=== PATIENT | male | born 1940 | race Caucasian/White ===

== ENCOUNTER 2021-12-18 15:06 | Emergency (ER) | payer MEDICARE ==
[~2021-12-18] VITALS: Ht 167.6 cm; Wt 68.5 kg
--- NOTE | 2021-12-18 15:15 | NUR ---
RICHARDSON FROM [facility] FOR ABNORMAL LABS AND POOR ORAL INTAKE X 1 WEEK. THE PATIENT IS ALERT AND ORIENTED X1. IN ROOM AIR, RESPIRATION REGULAR AND UNLABORED. THE PATIENT IS IN NO APPARENT DISTRESS. THE PATIENT IS ATTACHED TO THE MONITOR. WARM BLANKET PROVIDED FOR COMFORT. WILL CONTINUE TO MONITOR THE PATIENT.
[2021-12-18 15:55] LABS: BASOPHILS % (AUTO) 0.5 % (0.0-2.0); EOSINOPHILS % (AUTO) 0.9 % (0.0-6.0); HEMATOCRIT 34 % (39-51); HEMOGLOBIN 10.9 g/dL (13.5-17.5); LYMPHOCYTES # (AUTO) 0.7 K/uL (0.8-4.8); LYMPHOCYTES % (AUTO) 9.5 % (20.0-44.0); MEAN CORPUSCULAR HGB CONC 32 g/dl (31.0-36.0); MEAN CORPUSCULAR VOLUME 78 fL (80-96); MONOCYTES # (AUTO) 0.6 K/uL (0.1-1.30); MONOCYTES % (AUTO) 8.2 % (2.0-12.0); NEUTROPHILS # (AUTO) 5.9 K/uL (1.8-8.9); NEUTROPHILS % (AUTO) 80.9 % (43.0-81.0); PLATELET COUNT (AUTO) 440 K/uL (150-450); RED BLOOD CELL COUNT(AUTO) 4.28 MIL/uL (4.5-6.0); WHITE BLOOD COUNT (AUTO) 7.3 K/uL (4.3-11.0)
[2021-12-18 16:13] LABS: CALCIUM, SERUM 9.8 mg/dL (8.5-10.1); CARBON DIOXIDE 34 mmol/L (21-32); CHLORIDE 94 mmol/L (98-107); CREATININE 0.7 mg/dL (0.6-1.3); GLUCOSE 126 mg/dL (74-106); POTASSIUM 3.5 mmol/L (3.5-5.1); SODIUM SERUM 134 mmol/L (136-145); UREA NITROGEN, BLOOD 21 mg/dL (7-18)
[2021-12-18 16:18] LABS: ALANINE AMINOTRANSFERASE 14 U/L (12-78); ALBUMIN 2.2 g/dL (3.4-5.0); ALKALINE PHOSPHATASE 114 U/L (46-116); ASPARTATE AMINOTRANSFERASE 21 U/L (15-37); BILIRUBIN,DIRECT 0.2 mg/dL (0.0-0.2); BILIRUBIN,TOTAL 0.4 mg/dL (0.2-1.0); TOTAL PROTEIN, SERUM 7.6 g/dL (6.4-8.2)
[2021-12-18] MEDS ORDERED: IV NS 0.9% 1,000 ML BAG IV ONE (17:00)
--- NOTE | 2021-12-18 17:17 | NUR ---
COVID ANTIGEM AND COVID PCR SWABS DONE AND SENT TO THE LAB.
--- NOTE | 2021-12-18 17:18 | NUR ---
URINE COLLECTED AND SENT TO THE LAB
[2021-12-18 18:02] LABS: BILIRUBIN,URINE NEGATIVE (NEGATIVE); COLOR,URINE YELLOW (YELLOW); LEUKOCYTE ESTERASE ,URINE NEGATIVE (NEGATIVE); NITRITE, URINE NEGATIVE (NEGATIVE); PROTEIN,URINE NEGATIVE (NEGATIVE); UGLUCOSE NEGATIVE (NEGATIVE)
--- NOTE | 2021-12-18 19:25 | NUR ---
[facility] CALLED FOR TRANSPORT ETA 15 MINS PER IVETT.
--- NOTE | 2021-12-18 20:00 | NUR ---
REPORT GIVEN TO NURSE ASH FROM [facility]
--- NOTE | 2021-12-18 20:02 | NUR ---
REPORT GIVEN TO AMBULANCE STAFF
--- NOTE | 2021-12-18 20:13 | NUR ---
IV removed. Catheter intact and site benign. Pressure and 4x4 applied to site. No bleeding noted.Patient discharged in stable condition. Written and verbal after care instructions given.
[2021-12-18 20:28] VITALS: BP 121/77
== END 2021-12-18 20:28 ==
LOC: ER 15:11
DX: R53.1 Weakness (principal); G20 Parkinson's disease; F02.80 Dementia in other diseases classified elsewhere, unspecified severity, without behavioral disturbance, psychotic disturbance, mood disturbance, and anxiety; I25.10 Atherosclerotic heart disease of native coronary artery without angina pectoris; E78.5 Hyperlipidemia, unspecified; E11.9 Type 2 diabetes mellitus without complications; R13.12 Dysphagia, oropharyngeal phase; I10 Essential (primary) hypertension; Z20.822 Contact with and (suspected) exposure to COVID-19; R94.31 Abnormal electrocardiogram [ECG] [EKG]; R29.6 Repeated falls; Z87.440 Personal history of urinary (tract) infections
CPT/HCPCS: 99285; 96360; 70450; 71045; 87426; 93005; 84145; 85025; 80048; 87077; 87040 ×2; 87086; 83605; 80076; 87186; 81003; 36415; 84484; 85730; J7030; C9803; U0003

== ENCOUNTER 2022-01-13 20:46 | Inpatient (IN) | payer MEDICARE, OTHER ==
[~2022-01-13] VITALS: Ht 177.8 cm; Wt 69.4 kg
--- NOTE | 2022-01-13 20:50 | NUR ---
AVERA 40 FROM SNF FOR SOB AND FEVER. PLACED ON BED, RESPONDING TO PAINFUL STIMULI, TACHYPNEIC RR- 30 SATURATING AT 93% WITH NON REBREATHING MASK 15LIT O2. PINBALL MACHINE REPAIRER AT BED SIDE ATTACHED TO BI-PAP WITH SETTING IPAP-15, EPAP-5, RATE-14, O2-50% SATURATING AT 99%
[2022-01-13] MEDS ORDERED: IV LR 1000 ML 1,000 ML IV ONE ×2 (21:30→23:00)
[2022-01-13] MEDS ORDERED: PIPERACILLIN /TAZOBACTAM 3.375 G in IV D5W 50 ML IV ONE (21:30)
--- NOTE | 2022-01-13 21:46 | NUR ---
RECTAL TEMP 104.0 DR. YONY PURI AWARE.
--- NOTE | 2022-01-13 21:46 | NUR ---
LFA #18G S/L BLOOD, COVID PCR, AND COVID ANTIGEN SWAB COLLECTED AND SENT TO LAB
--- NOTE | 2022-01-13 21:54 | NUR ---
RT NOTE PT CAME IN FROM SNF ON NON REBREATHER FOR LABORED BREATHING AND HYPOXIA. PLACED ON BIPAP ON SETTINGS OF ST 15/5 RR 14 100% PER MD ORDER. Addendum: 01/14/22 at 0145 by LESLEE BARKER RT Amended: Links added.
[2022-01-13] MEDS ORDERED: ACETAMINOPHEN 650 MG/SUPP.RECT RC ONE ×2 (22:00→22:06)
[2022-01-13] MEDS ORDERED: PIPERACILLIN /TAZOBACTAM 3.375 G VIAL IV ONE (22:07)
[2022-01-13 22:23] LABS: BASOPHILS # (AUTO) 0.1 K/uL (0.0-0.2); BASOPHILS % (AUTO) 0.8 % (0.0-2.0); HEMATOCRIT 34 % (39-51); HEMOGLOBIN 10.9 g/dL (13.5-17.5); LYMPHOCYTES # (AUTO) 0.5 K/uL (0.8-4.8); LYMPHOCYTES % (AUTO) 3.6 % (20.0-44.0); MEAN CORPUSCULAR HGB CONC 32 g/dl (31.0-36.0); MEAN CORPUSCULAR VOLUME 78 fL (80-96); MONOCYTES # (AUTO) 0.7 K/uL (0.1-1.30); MONOCYTES % (AUTO) 4.7 % (2.0-12.0); NEUTROPHILS # (AUTO) 13.3 K/uL (1.8-8.9); NEUTROPHILS % (AUTO) 90.9 % (43.0-81.0); PLATELET COUNT (AUTO) 564 K/uL (150-450); RED BLOOD CELL COUNT(AUTO) 4.38 MIL/uL (4.5-6.0); WHITE BLOOD COUNT (AUTO) 14.7 K/uL (4.3-11.0)
[2022-01-13 22:34] LABS: CALCIUM, SERUM 10.9 mg/dL (8.5-10.1); CARBON DIOXIDE 22 mmol/L (21-32); CHLORIDE 101 mmol/L (98-107); CREATININE 1.3 mg/dL (0.6-1.3); GLUCOSE 248 mg/dL (74-106); POTASSIUM 4.5 mmol/L (3.5-5.1); SODIUM SERUM 140 mmol/L (136-145); UREA NITROGEN, BLOOD 27 mg/dL (7-18)
[2022-01-13 22:40] LABS: ALANINE AMINOTRANSFERASE 54 U/L (12-78); ALKALINE PHOSPHATASE 164 U/L (46-116); ASPARTATE AMINOTRANSFERASE 67 U/L (15-37); BILIRUBIN,DIRECT 0.2 mg/dL (0.0-0.2); BILIRUBIN,TOTAL 0.6 mg/dL (0.2-1.0); TOTAL PROTEIN, SERUM 8.3 g/dL (6.4-8.2)
--- NOTE | 2022-01-13 22:43 | NUR ---
LACTIC ACID 5.7
[2022-01-13 22:44] LABS: ABG BASE EXCESS -3.5 mmol/L; ABG PCO2 25.5 mmHg (35.0-45.0); ABG PO2 290.4 mmHg (75.0-100.0); COHb 0.3 % (0.5-1.5); MetHb 0.6 % (0.0-1.5); O2Hb 98.8 % (94.0-97.0); SITE, ABG Left Radial; VENT MODE, BG ST 15/5 100% RR 14
--- NOTE | 2022-01-13 22:55 | NUR ---
RT NOTE ABG DONE AND FIO2 TITRATED TO 50% PER DR. LOUIS. RN AWARE. Addendum: 01/14/22 at 0145 by LESLEE BARKER RT Amended: Links added.
--- NOTE | 2022-01-13 23:25 | NUR ---
URINE SAMPLE SENT TO LAB
[2022-01-13] MEDS ORDERED: SUCCINYLCHOLINE CHLORIDE 20 MG/ML VIAL IV ONE (23:30)
[2022-01-13] MEDS ORDERED: ETOMIDATE 2 MG/ML VIAL IV ONE (23:30)
--- NOTE | 2022-01-13 23:40 | NUR ---
FC INSERTED 16FR INSERTED WITH URINE RETURN
[2022-01-13 23:43] LABS: BILIRUBIN,URINE NEGATIVE (NEGATIVE); LEUKOCYTE ESTERASE ,URINE SMALL (NEGATIVE); NITRITE, URINE NEGATIVE (NEGATIVE); PH,URINE 5.5 (5.0-8.0); PROTEIN,URINE 30 mg/dl (NEGATIVE); UGLUCOSE NEGATIVE (NEGATIVE)
[2022-01-13 23:49] LABS: COLOR,URINE HAZY (YELLOW)
--- NOTE | 2022-01-13 23:50 | NUR ---
REPORT GIVEN TO DARLENE SPICE CLEANER FOR SHELBI
--- NOTE | 2022-01-13 23:52 | NUR ---
CHANGED ROOM TO ICU 255
[2022-01-13] MEDS ORDERED: FERR325T23 PO (23:57)
[2022-01-13] MEDS ORDERED: ATOR40TA PO (23:57)
[2022-01-13] MEDS ORDERED: FINA5TAB3 PO (23:57)
[2022-01-14] VITALS (34 sets, daily range): BP systolic 90–148; BP diastolic 46–81
[2022-01-14] MEDS ORDERED: MORPHINE SULFATE INJ 2 MG/ML DISP.SYRIN IV PRN
[2022-01-14] MEDS ORDERED: Z GUARD REMEDY 4 OZ OINT TP PRN
[2022-01-14] MEDS ORDERED: MAG HYDROX/AL HYDROX/SIMETH 30 ML UDC PO PRN
[2022-01-14] MEDS ORDERED: DEXTROSE 50%-WATER 50 ML DISP.SYRIN IV PRN
[2022-01-14] MEDS ORDERED: MAGNESIUM HYDROXIDE 30 ML UDC PO PRN
[2022-01-14] MEDS ORDERED: ACETAMINOPHEN 650 MG/SUPP.RECT RC PRN
[2022-01-14] MEDS ORDERED: ONDANSETRON HCL/PF 4 MG/2 ML VIAL IVP PRN
--- NOTE | 2022-01-14 00:08 | NUR ---
UPDATED SON ARIANE [phone] OF PT'S ADMISSION
[2022-01-14] MEDS ORDERED: ONDA4TAB11 PO (00:09)
[2022-01-14] MEDS ORDERED: BISA10SU61 RC (00:09)
[2022-01-14] MEDS ORDERED: NYST15OI2 TP (00:09)
[2022-01-14] MEDS ORDERED: MIRT-90 PO (00:09)
[2022-01-14] MEDS ORDERED: MULT-754 PO (00:09)
[2022-01-14] MEDS ORDERED: METF-441 PO (00:09)
[2022-01-14] MEDS ORDERED: MECL-159 PO (00:09)
[2022-01-14] MEDS ORDERED: TAMS-12 PO (00:09)
[2022-01-14] MEDS ORDERED: DOCU-141 PO (00:09)
[2022-01-14] MEDS ORDERED: MAGN400O21 PO (00:09)
[2022-01-14] MEDS ORDERED: GLUC1KIT IM (00:09)
[2022-01-14] MEDS ORDERED: CLON0.5T PO (00:09)
[2022-01-14] MEDS ORDERED: AMIN30LI27 PO (00:09)
[2022-01-14] MEDS ORDERED: INSU100V42 SQ (00:09)
[2022-01-14] MEDS ORDERED: CLOP75TA15 PO (00:09)
[2022-01-14] MEDS ORDERED: ASCO500T10 PO (00:09)
[2022-01-14] MEDS ORDERED: MELA3TAB41 PO (00:09)
[2022-01-14] MEDS ORDERED: MAG355OR18 PO (00:09)
[2022-01-14] MEDS ORDERED: VITAMIN D PO (00:10)
[2022-01-14] MEDS ORDERED: ACET325C7 PO (00:10)
--- NOTE | 2022-01-14 00:15 | NUR ---
MRSA SWAB COLLECTED AND SENT TO LAB
[2022-01-14] MEDS ORDERED: ONDANSETRON HCL/PF 4 MG/2 ML VIAL ONE (00:19)
[2022-01-14] MEDS: BLOOD SUGAR DIAGNOSTIC 1 EACH STRIP IN SCH ×7 (00:25→23:25)
--- NOTE | 2022-01-14 00:25 | NUR ---
EMESIS X1 NOTED. ADMINISTERED ZOFRAN IVP ORDERED
[2022-01-14] MEDS: IV NS 0.9% 1,000 ML IV PRN ×2 (00:27→14:07)
--- NOTE | 2022-01-14 00:35 | NUR ---
PT TRANSFERRED TO ICU 255 VIA ACLS PROTOCOL. ON O2 NRB @ 15LPM. PT TOLERATED TRANSFER WELL
[2022-01-14 00:51] LABS: BACTERIA,URINE Moderate /HPF (None Seen); FINE GRANULAR CASTS,URINE Moderate /LPF (None Seen); SQUAMOUS EPITHELIAL CELL,UR Rare /HPF (None Seen)
[2022-01-14] MEDS: INSULIN REGULAR, HUMAN 100 UNIT/ML 3 ML VIAL SQ PRN ×5 (01:00→23:33)
[2022-01-14] MEDS ORDERED: INSULIN REGULAR, HUMAN 100 UNIT/ML 3 ML VIAL ONE (01:50)
--- NOTE | 2022-01-14 02:03 | NUR ---
RN NOTE 0027 ADMITTTED PT TO UNIT WITH DX OF SEPSIS, [facility] FACILITY ACQUIRED, ACUTE HYPOXIC RESPIRATORY FAILURE. PT LETHARGIC, OPEN EYES TO STIMULI. ON O2 AT 15L VIA NON REBREATHER MASK. O2 SAT 94% TACHYPNEIC, RR IN 30S, DOES NOT APPEAR IN DISTRESS. PLACED ON TELE MONITOR, SINUS TACH WITH HR IN 130S, PT NOTED WITH FEVER T 101.1. COOLING MEASURES APPLIED. IV FLUIDS NS AT 75ML/HR STARTED ORDERED. PRATT CATH IN PLACE, DRAINING CLEAR AVINASH URINE.NOTED REDNESS ON SACRUM AND SKIN DISCOLORATIONS ON BILATERAL LEGS WITH SCABS/ABRASIONS. ALL SAFETY MEASURES IN PLACE. WILL CONTINUE TO MONITOR.
[2022-01-14 04:28] LABS: BASOPHILS % (AUTO) 0.1 % (0.0-2.0); HEMATOCRIT 32 % (39-51); HEMOGLOBIN 10.3 g/dL (13.5-17.5); LYMPHOCYTES # (AUTO) 0.5 K/uL (0.8-4.8); MEAN CORPUSCULAR HGB CONC 33 g/dl (31.0-36.0); MEAN CORPUSCULAR VOLUME 77 fL (80-96); MONOCYTES # (AUTO) 0.8 K/uL (0.1-1.30); MONOCYTES % (AUTO) 4.8 % (2.0-12.0); NEUTROPHILS # (AUTO) 14.8 K/uL (1.8-8.9); NEUTROPHILS % (AUTO) 92.1 % (43.0-81.0); PLATELET COUNT (AUTO) 444 K/uL (150-450); RED BLOOD CELL COUNT(AUTO) 4.11 MIL/uL (4.5-6.0); WHITE BLOOD COUNT (AUTO) 16.1 K/uL (4.3-11.0)
[2022-01-14 04:48] LABS: CALCIUM, SERUM 11.3 mg/dL (8.5-10.1); CARBON DIOXIDE 23 mmol/L (21-32); CHLORIDE 102 mmol/L (98-107); CREATININE 1.2 mg/dL (0.6-1.3); GLUCOSE 186 mg/dL (74-106); MAGNESIUM 1.8 mg/dL (1.8-2.4); SODIUM SERUM 141 mmol/L (136-145); UREA NITROGEN, BLOOD 27 mg/dL (7-18)
[2022-01-14 04:54] LABS: THYROID STIMULATING HORMONE 1.647 uIU/mL (0.358-3.74)
--- NOTE | 2022-01-14 07:18 | NUR ---
RN NOTE PT GETTING MORE AWAKE NOW, BUT DOES NOT FOLLOW ANY COMMANDS, EPISODES OF TAKING OFF NON REBREATHER MASK, NO DISTRESS NOTED. NO SOB NOTED. PT REMAIN TO BE NPO, FOR SWALLOW EVAL TODAY. NO SIGNS OF HYPOGLYCEMIA NOTED. CONTINUE ON NS AT 75ML/HR. ALL SAFETY MEASURES REMAIN IN PLACE. ENDORSED TO ELBA FOR SHELBI.
--- NOTE | 2022-01-14 07:30 | NUR ---
OPENING NOTE: REPORT RECEIVED FROM FLORENTINO DALY. ORDERS AND LABS REVIEWED DURING REPORT. PT IN DROPLET ISOLATION FOR R/O COVID. RAPID WAS NEGATIVE, PCR PENDING. PT CHECKED ON HOURLY AND PRN BY NURSING STAFF.
--- NOTE | 2022-01-14 08:52 | NUR ---
WOUND CARE CONSULT: REVIEWED CHART, NURSING DOCUMENTATION AND PHOTOS WHICH INDICATE BILATERAL LOWER EXTREMITY DISCOLORATIONS AND SACRAL INTACT DEEP TISSUE INJURY, PRESENT ON ADMISSION. RECOMMENDATIONS MADE FOR SKIN PROTECTION. DISCUSSED WITH NURSING STAFF. FIRST STEP LOW AIRLOSS MATTRESS IS ON ORDER. MD IN AGREEMENT WITH PLAN OF CARE.
[2022-01-14] MEDS ORDERED: CEFEPIME 1 GM in IV D5W 50 ML IV SCH (09:00)
[2022-01-14] MEDS ORDERED: HEPARIN SODIUM, PORCINE 5000 UNITS/1 ML VIAL SQ SCH (09:00)
[2022-01-14] MEDS: PANTOPRAZOLE 40 MG VIAL IV SCH (09:06)
[2022-01-14] MEDS: CEFEPIME 2 GM in IV D5W 100 ML IV SCH ×2 (09:06→21:06)
[2022-01-14] MEDS ORDERED: MAG30ORA PO (09:15)
[2022-01-14] MEDS ORDERED: MEMA10TA PO (09:15)
[2022-01-14] MEDS ORDERED: NA P133E RC (09:15)
[2022-01-14] MEDS ORDERED: ONDA-97 PO (09:15)
[2022-01-14] MEDS ORDERED: CHOL100043 PO (09:15)
--- NOTE | 2022-01-14 09:30 | NUR ---
PT'S DAUGHTER IN LAW SPOKE TO RN. RN UPDATED DAUGHTER IN LAW. PER DAUGHTER IN LAW PT'S SON DOES NOT SPEAK VERY MUCH SAMI, ONLY ROMANIAN, SO SPEAKING TO HER WILL BE EASIER. DAUGHTER IN LAW ALSO STATED THAT PATIENT HAS ADVANCED DEMENTIA AND LATELY HAS NOT RESPONDED PURPOSELY TO THE FAMILY WHEN SPOKEN TO. WILL CONTINUE TO MONITOR.
[2022-01-14] MEDS ORDERED: ENOXAPARIN SODIUM 60 MG/0.6 ML DISP.SYRIN SQ SCH (10:45)
[2022-01-14 11:26] LABS: ABG BASE EXCESS 2.4 mmol/L; ABG OXYGEN SATURATION 92.5 % (92.0-98.5); ABG PCO2 37.6 mmHg (35.0-45.0); ABG PO2 69.3 mmHg (75.0-100.0); AaDO2 201.6 mmHg; COHb 0.2 % (0.5-1.5); MetHb 0.3 % (0.0-1.5); SITE, ABG Left Brachial; VENT MODE, BG NC 6 LPM
[2022-01-14] MEDS: DEXAMETHASONE SOD PHOSPHATE 10 MG/ML VIAL IV SCH (11:34)
--- NOTE | 2022-01-14 17:13 | NUR ---
FAMILY CONTACT INFORMATION: NOK, PT'S SON ARIANE ALEXANDER, ARINAE' ABRAHAM ALEXANDER, PT'S OTHER SON, NOT DECISION MAKER, JESENIA ALEXANDER, PT'S SON ARIANE DOES NOT SPEAK GABONESE WELL SO HE PREFERS IF YOU CALL HIS ABRAHAM TO GIVE INFORMATION OR FOR CONSENTS. SHE WILL TELL HIM WHAT WE NEED AND GET BACK TO US AFTER DISCUSSING WITH HIM. PT'S OTHER SON ZANE DOES SPEAK GABONESE AND CAN GET A HOLD OF ARIANE IF ARIANE IS NOT ANSWERING HIS PHONE.
[2022-01-14] MEDS: ENOXAPARIN SODIUM 60 MG/0.6 ML DISP.SYRIN SQ SCH (18:32)
--- NOTE | 2022-01-14 19:17 | NUR ---
END OF SHIFT NOTE: REPORT GIVEN TO FLORENTINO DALY. PULMONARY CT ANGIO STILL PENDING, TO BE DONE TONIGHT PER RADIOLOGY, ENDORSED TO FLORENTINO. CONSENT ON CHART. RN DISCUSSED CODE STATUS WITH SON ARIANE WHEN HE VISITED. ARIANE STATED HE WOULD TALK IT OVER WITH HIS FAMILY AND LET US KNOW IF THEY WANT TO CHANGE HIS CODE STATUS. PT CHECKED ON HOURLY AND PRN BY NURSING STAFF.
--- NOTE | 2022-01-14 19:30 | NUR ---
RN NOTE RECEIVED PT ON 6L O2 VIA NC. NOT IN ANY DISTRESS. O2 SAT AT 98%. PT RESPONDS TO STIMULI, NONVERBAL. MARIAELENA WRIST RESTRAINTS IN PLACE. GOOD CIRCULATION. ON NS AT 75ML.HR. PRATT DRAINING URINE BY GRAVITY. AFEBRILE. WILL CONTINUE TO MONITOR.
[2022-01-14] MEDS ORDERED: IOHEXOL-350 100 ML VIAL IV ONE (20:11)
--- NOTE | 2022-01-14 21:01 | NUR ---
RN NOTE PT DONE WITH WITH CTA, RN ACCOMPANIED PT TO RADIOLOGY. NO DISTRESS NOTED.
--- NOTE | 2022-01-14 22:17 | NUR ---
RN NOTE NOTED PT O2 SAT AT 88%-90% ON 6L NC. NO DISTRESS NOTED. INCREASED O2 TO 10L SIMPLE MASK. WILL CONTINUE TO MONITOR.
[2022-01-15] VITALS (22 sets, daily range): BP systolic 92–123; BP diastolic 47–75
--- NOTE | 2022-01-15 00:51 | NUR ---
RN NOTE PT TOLERATING O2 AT 10L SIMPLE MASK, O2 SAT AT 98%. NO SIGNS OF DISTRESS NOTED. BED BATH DONE.
--- NOTE | 2022-01-15 03:40 | NUR ---
RN NOTE PT O2 SAT AT 100%, TITRATED O2 TO 6L VIA NC. NOW AT 98%. RR 20. RELEASED FROM WRIST RESTRAINTS. WILL CONTINUE TO MONITOR.
[2022-01-15] MEDS: IV NS 0.9% 1,000 ML IV PRN ×2 (04:06→18:43)
[2022-01-15] MEDS ORDERED: ENOXAPARIN SODIUM 60 MG/0.6 ML DISP.SYRIN SQ ONE (05:18)
[2022-01-15] MEDS: ENOXAPARIN SODIUM 60 MG/0.6 ML DISP.SYRIN SQ SCH (05:24)
--- NOTE | 2022-01-15 05:30 | NUR ---
RN NOTE TITRATED O2 TO 4L NC, TOLERATING O2 SAT AT 97%. CONTINUE OFF RESTRAINTS.
[2022-01-15] MEDS: INSULIN REGULAR, HUMAN 100 UNIT/ML 3 ML VIAL SQ PRN ×4 (05:36→23:25)
[2022-01-15 05:37] LABS: HEMATOCRIT 30 % (39-51); HEMOGLOBIN 9.6 g/dL (13.5-17.5); LYMPHOCYTES # (AUTO) 0.3 K/uL (0.8-4.8); LYMPHOCYTES % (AUTO) 2.6 % (20.0-44.0); MEAN CORPUSCULAR HGB CONC 32 g/dl (31.0-36.0); MEAN CORPUSCULAR VOLUME 78 fL (80-96); MONOCYTES # (AUTO) 0.5 K/uL (0.1-1.30); MONOCYTES % (AUTO) 3.8 % (2.0-12.0); NEUTROPHILS # (AUTO) 12.4 K/uL (1.8-8.9); NEUTROPHILS % (AUTO) 93.6 % (43.0-81.0); PLATELET COUNT (AUTO) 425 K/uL (150-450); RED BLOOD CELL COUNT(AUTO) 3.81 MIL/uL (4.5-6.0); WHITE BLOOD COUNT (AUTO) 13.3 K/uL (4.3-11.0)
[2022-01-15] MEDS: BLOOD SUGAR DIAGNOSTIC 1 EACH STRIP IN SCH ×4 (05:37→23:25)
[2022-01-15 06:08] LABS: CALCIUM, SERUM 10.1 mg/dL (8.5-10.1); CARBON DIOXIDE 26 mmol/L (21-32); CHLORIDE 107 mmol/L (98-107); CREATININE 0.6 mg/dL (0.6-1.3); GLUCOSE 169 mg/dL (74-106); POTASSIUM 3.3 mmol/L (3.5-5.1); SODIUM SERUM 142 mmol/L (136-145); UREA NITROGEN, BLOOD 18 mg/dL (7-18)
--- NOTE | 2022-01-15 07:15 | NUR ---
RN NOTE PT TOLERATING O2 AT 4L. NO SIGNS OF DISTRESS. PT RESPONDS TO STIMULI. NO SIGNS OF PAIN NOTED. CONTINUE OFF RESTRAINTS. REMAIN AFEBRILE. CONTINUE ON IVFLUIDS NS AT 75ML/HR. REMAIN NPO. FREQUENT MONITORING, ISOLATION PRECAUTION OBSERVED, PCR STILL PENDING.
[2022-01-15] MEDS: CEFEPIME 2 GM in IV D5W 100 ML IV SCH ×2 (08:41→21:12)
[2022-01-15] MEDS: PANTOPRAZOLE 40 MG VIAL IV SCH (08:42)
[2022-01-15] MEDS: DEXAMETHASONE SOD PHOSPHATE 10 MG/ML VIAL IV SCH (08:42)
[2022-01-15] MEDS: POTASSIUM CL. PREMIX PERIPHER. 50 ML IV SCH ×2 (10:56→13:06)
--- NOTE | 2022-01-15 11:53 | NUR ---
WEAPONS DESIGNER NOTE PATIENT TRANSFERRED TO TELE ROOM 317. ALL VSS, BREATHING ON ROOM AIR SATTING AT 100%, NO SIGNS OF [id number]. REPORT GIVEN TO RN AT BEDSIDE. MEDICATION TRANSFERRED WITH PATIENT (CHARO, Z-GUARD).
--- NOTE | 2022-01-15 11:56 | NUR ---
REGISTERED NURSE MATERNITYCONVERTIBLE TOP INSTALLER NOTES: RECEIVED PT FROM ICU STAFF. REPORT RECEIVED AT BEDSIDE. PT A/O X1-2. NO S/S OF SOB OR ACUTE DISTRESS AT THE MOMENT. ON RA SATURATING AT 98%. TELE MONITOR READING SR WITH PVC AND PJC, HR - 79. VS STABLE - BP-103/53, TEMP- 98.0, RR- 18. IV ACCESS @ R AC# 18 RUNNING 10MEQ KCL, IV 10MEQ, IV ACCESS L WRIST # 18 SL, PATENT AND INTACT. F/C NOTED IN PLACE, DRAINING CLEAR YELLOW URINE. BILATERAL SOFT RESTRAINTS NOTED. DISCOLORATION ON BILATERAL LOWER LEGS AND SACRAL REDNESS NOTED. WOUND CARE APPLIED AT ICU AND PHOTOS IN CHART. ORIENTED PT TO ROOM, STAFF, DATE AND TIME. SAFETY MEASURES IN PLACE, HOB ELEVATED, LOCKED AT LOWEST POSITION, SIDERAILS UPX3, TABLE AND CALL LIGHT WITHIN EASY REACH, WILL ASSESS PT THROUGHOUT SHIFT.
[2022-01-15] MEDS: APIXABAN 5 MG TABLET PO SCH (16:29)
--- NOTE | 2022-01-15 17:24 | NUR ---
INSULIN COVERAGE NOT ADMINISTERED DUE TO PATIENT'S NPO STATUS. VERIFIED WITH SALES NEGOTIATOR, WILL CONT TO MONITOR FOR S/S OF HYPO AND HYPERGLYCEMIA THROUGHOUT SHIFT.
--- NOTE | 2022-01-15 18:20 | NUR ---
RN ADMINISTERED 2L O2 VIA NS DUE TO O2 SAT GOING FROM 98% AT ADMISSION TO 94% Addendum: 01/15/22 at 1823 by JEANNA PEREZ RN WILL REASSESS VS BEFORE END OF SHIFT.
--- NOTE | 2022-01-15 18:52 | NUR ---
TRAIN ANNOUNCER CLOSING NOTES: PATIENT A/O X1-2. NO S/S OF SOB OR ACUTE DISTRESS AT THE MOMENT. ON 2L 02 SATURATING AT 95%. TELE MONITOR READING SR WITH PVC AND PJC, HR - 74. IV ACCESS @ R AC# 18 RUNNING NS @ 75ML/HR, IV ACCESS L WRIST # 18 SL, PATENT AND INTACT. F/C NOTED IN PLACE, DRAINING CLEAR YELLOW URINE. BILATERAL SOFT RESTRAINTS NOTED. DISCOLORATION ON BILATERAL LOWER LEGS AND SACRAL REDNESS NOTED. SAFETY MEASURES IN PLACE, HOB ELEVATED, LOCKED AT LOWEST POSITION, SIDERAILS UPX3, TABLE AND CALL LIGHT WITHIN EASY REACH, WILL ENDORSE TO PM SHIFT.
--- NOTE | 2022-01-15 19:39 | NUR ---
RN OPENING NOTE PATIENT AWAKE IN BED. A/OX2. NO S/S OF DISTRESS, BREATHING WITHOUT DIFFICULTY ON 2L NC. RAC #18 INTACT AND PATENT W/ NS 75ML/HR; L-WRIST #18 SL INTACT AND PATENT. TELE READS SR 85. SAFETY MEASURES IN PLACE: BED LOCKED AND AT LOWEST POSITION, RAILS UP X2, CALL BRANTLEY WITHIN REACH. WILL CONTINUE TO MONITOR PATIENT.
[2022-01-16] VITALS (7 sets, daily range): BP systolic 101–139; BP diastolic 55–86
--- NOTE | 2022-01-16 01:00 | NUR ---
RN NOTE PATIENT MANAGED TO PULL LEFT WRIST IV ACCESS OUT. NO ACTIVE BLEEDING APPARENT, BUT PRESSURE DRESSING APPLIED. PATIENT STABLE. PATIENT STILL HAS RAC IV ACCESS. WILL CONTINUE TO MONITOR PATIENT.
[2022-01-16] MEDS: BLOOD SUGAR DIAGNOSTIC 1 EACH STRIP IN SCH ×3 (05:46→17:18)
[2022-01-16] MEDS: INSULIN REGULAR, HUMAN 100 UNIT/ML 3 ML VIAL SQ PRN ×3 (05:47→17:20)
[2022-01-16] MEDS: IV NS 0.9% 1,000 ML IV PRN (06:09)
--- NOTE | 2022-01-16 06:27 | NUR ---
RN CLOSING NOTE PATIENT ASLEEP IN BED. A/OX1. NO S/S OF DISTRESS, BREATHING WITHOUT DIFFICULTY ON 2L NC. RAC #18 INTACT AND PATENT W/ NS 75ML/HR. TELE READS SR 68 W/ PJCs AND PVCs. SAFETY MEASURES IN PLACE: BED LOCKED AND AT LOWEST POSITION, RAILS UP X2, CALL BRANTLEY WITHIN REACH. WILL ENDORSE TO THE NEXT SHIFT FOR SHELBI.
[2022-01-16 07:06] LABS: ALANINE AMINOTRANSFERASE 29 U/L (12-78); ALKALINE PHOSPHATASE 108 U/L (46-116); ASPARTATE AMINOTRANSFERASE 23 U/L (15-37); BILIRUBIN,TOTAL 0.4 mg/dL (0.2-1.0); CALCIUM, SERUM 9.7 mg/dL (8.5-10.1); CARBON DIOXIDE 25 mmol/L (21-32); CHLORIDE 111 mmol/L (98-107); CREATININE 0.8 mg/dL (0.6-1.3); GLUCOSE 193 mg/dL (74-106); POTASSIUM 3.4 mmol/L (3.5-5.1); SODIUM SERUM 145 mmol/L (136-145); TOTAL PROTEIN, SERUM 6.7 g/dL (6.4-8.2); UREA NITROGEN, BLOOD 22 mg/dL (7-18)
[2022-01-16 07:09] LABS: HEMATOCRIT 32 % (39-51); LYMPHOCYTES # (AUTO) 0.3 K/uL (0.8-4.8); LYMPHOCYTES % (AUTO) 2.3 % (20.0-44.0); MEAN CORPUSCULAR HGB CONC 32 g/dl (31.0-36.0); MEAN CORPUSCULAR VOLUME 79 fL (80-96); MONOCYTES # (AUTO) 0.5 K/uL (0.1-1.30); MONOCYTES % (AUTO) 4.2 % (2.0-12.0); NEUTROPHILS # (AUTO) 11.1 K/uL (1.8-8.9); NEUTROPHILS % (AUTO) 93.5 % (43.0-81.0); PLATELET COUNT (AUTO) 493 K/uL (150-450); RED BLOOD CELL COUNT(AUTO) 3.99 MIL/uL (4.5-6.0); WHITE BLOOD COUNT (AUTO) 11.9 K/uL (4.3-11.0)
[2022-01-16 07:15] LABS: ALBUMIN 1.6 g/dL (3.4-5.0)
--- NOTE | 2022-01-16 07:55 | NUR ---
HOSPITALIST OPENING NOTE Patient in bed, awake. A/O x 1-2, Luxembourgish speaking. On O2 at 2 LPM, no SOB or s/s of distress noted. IV access on RAC #18 infusing NS at 75 ml/hr. Khan catheter in place draining to a yellow colored urine. On tele monitoring showing SR with PJCs and PACs, HR 73. Patient kept NPO, awaiting for swallow eval. Safety precautions in place: bed in low, locked position; siderails up x 2; call light within reach. Will continue to monitor.
[2022-01-16] MEDS: PANTOPRAZOLE 40 MG VIAL IV SCH (08:25)
[2022-01-16] MEDS: DEXAMETHASONE SOD PHOSPHATE 10 MG/ML VIAL IV SCH (08:25)
[2022-01-16] MEDS: CEFEPIME 2 GM in IV D5W 100 ML IV SCH ×2 (08:26→21:01)
[2022-01-16] MEDS: APIXABAN 5 MG TABLET PO SCH ×3 (08:26→17:07)
[2022-01-16] MEDS ORDERED: POTASSIUM CHLORIDE 20 MEQ POWDER PACKET PO SCH (10:00)
--- NOTE | 2022-01-16 18:51 | NUR ---
COLLAR TURNER CLOSING NOTE Patient in bed, resting. A/O x 1-2, Palestinian speaking. On O2 at 2 LPM, no SOB or s/s of distress noted. IV access on RAC #18 infusing NS at 75 ml/hr. Khan catheter in place draining to a yellow colored urine with an output of 500 cc. On tele monitoring showing SR with PVCs, PACs, and occasional PJCs, HR 92. Bilateral soft wrist restraints noted. Patient kept clean and dry. Due meds given. Safety precautions in place: bed in low, locked position; siderails up x 2; call light within reach. Will endorse to overnight caregiver nurse for SHELBI.
--- NOTE | 2022-01-16 20:02 | NUR ---
DIRECTOR HOME OPENING NOTES: RECEIVED PATIENT AWAKE IN BED ACCOMPANIED BY FAMILY, BED IN LOW POSITION CALL LIGHTS WITHIN REACH, NO COMPLAIN OF PAIN AND DISCOMFORT AT THIS TIME, ON O2 INHAALTION AT 2LPM VIA NASAL CANNULA PATIENT IS A/OX1 WITH EPISODE OF CONFUSION, ON TELE MONITOR- SR-90 WITH PVC AND PAC NO SYMPTOMS WAS OBSERVED, PATIENT ON BILATERAL SOFT RESTRAINT, WITH PRATT CATHETER- 50CC URINE OUTPUT, ON PUREE DIET, IV LINE RAC#18 WITH ONGOING NSS@75ML/HR INFUSING WELL, PATIENT KEPT CLEAN AND DRY ALL NEEDS MET WILL CONTINUE TO MONITOR.
[2022-01-17] VITALS: BP 125/49
[2022-01-17] MEDS: INSULIN REGULAR, HUMAN 100 UNIT/ML 3 ML VIAL SQ PRN ×3 (00:16→11:54)
[2022-01-17] MEDS: BLOOD SUGAR DIAGNOSTIC 1 EACH STRIP IN SCH ×3 (00:19→11:52)
--- NOTE | 2022-01-17 00:19 | NUR ---
RN NOTES: BLOOD SUGAR-234/ 4 UNITS INSULIN GIVEN PER SLIDING SCALE.
[2022-01-17 04:00] VITALS: BP 136/61
--- NOTE | 2022-01-17 06:03 | NUR ---
RN NOTES: BLOOD SUGAR-168/ 3 UNITS INSULIN GIVEN PER SLIDING SCALE
--- NOTE | 2022-01-17 06:37 | NUR ---
FACILITY ENVIRONMENTAL TECHNICIAN CLOSING NOTES: PATIENT SLEEP IN BED COMFORTABLY, BED IN LOW POSITION CALL LIGHTS WITHIN REACH, NO COMPLAIN OF PAIN AND DISCOMFORT AT THIS TIME, ON O2 INHALATION OF 2LPM VIA NASAL CANNULA, ON PRATT CATHETER-800CC URINE OUTPUT, ON TELE LFYAXTT-OV-90 WITH PVC AND PAC, PATIENT ON BILATERAL SOFT WRIST RESTRAINT, RENEWED, CHECK FOR ANY SKIN CHANGES, PATIENT KEPT CLEAN AND DRY ALL NEEDS MET ENDORSE TO INCOMING SHIFT.
[2022-01-17 06:41] LABS: BASOPHILS % (AUTO) 0.1 % (0.0-2.0); EOSINOPHILS % (AUTO) 0.1 % (0.0-6.0); HEMATOCRIT 29 % (39-51); HEMOGLOBIN 9.4 g/dL (13.5-17.5); LYMPHOCYTES # (AUTO) 0.3 K/uL (0.8-4.8); LYMPHOCYTES % (AUTO) 3.7 % (20.0-44.0); MEAN CORPUSCULAR HGB CONC 33 g/dl (31.0-36.0); MEAN CORPUSCULAR VOLUME 78 fL (80-96); MONOCYTES # (AUTO) 0.6 K/uL (0.1-1.30); MONOCYTES % (AUTO) 6.3 % (2.0-12.0); NEUTROPHILS # (AUTO) 8.4 K/uL (1.8-8.9); NEUTROPHILS % (AUTO) 89.8 % (43.0-81.0); PLATELET COUNT (AUTO) 460 K/uL (150-450); WHITE BLOOD COUNT (AUTO) 9.3 K/uL (4.3-11.0)
[2022-01-17 07:02] LABS: ALANINE AMINOTRANSFERASE 23 U/L (12-78); ALBUMIN 1.6 g/dL (3.4-5.0); ALKALINE PHOSPHATASE 100 U/L (46-116); ASPARTATE AMINOTRANSFERASE 18 U/L (15-37); BILIRUBIN,TOTAL 0.4 mg/dL (0.2-1.0); CALCIUM, SERUM 9.7 mg/dL (8.5-10.1); CARBON DIOXIDE 25 mmol/L (21-32); CHLORIDE 108 mmol/L (98-107); CREATININE 0.6 mg/dL (0.6-1.3); GLUCOSE 168 mg/dL (74-106); MAGNESIUM 1.8 mg/dL (1.8-2.4); PHOSPHORUS 3.2 mg/dL (2.5-4.9); POTASSIUM 3.2 mmol/L (3.5-5.1); SODIUM SERUM 142 mmol/L (136-145); TOTAL PROTEIN, SERUM 6.3 g/dL (6.4-8.2); UREA NITROGEN, BLOOD 16 mg/dL (7-18)
--- NOTE | 2022-01-17 07:05 | NUR ---
SPECIAL OFFICER AUTOMAT OPENING NOTES RECEIVED PATIENT AWAKE IN BED, RESPONDS TO VERBAL AND TACTILE STIMULI. A/Ox1, WELSH SPEAKING. ON 2L VIA NC, NO S/S OF SOB OR RESPIRATORY DISTRESS. IV ACCESS RAC #18 SL. INTACT AND PATENT. PATIENT IS ON TELE MONITORING SHOWING SR 68 WITH PVCs AND PACs, NO S/S OF CARDIAC DISTRESS. HAS FC DRAINING YELLOW, CLEAR URINE. INCONTINENT. SKIN ISSUES: SACRUM AND BILATERAL LOWER EXTREMITIES DISCOLORATION. SAFETY MEASURES IN PLACE: BED LOCKED AND IN LOWEST POSITION, CALL LIGHT WITHIN REACH, HOB ELEVATED, SIDE RAILS UP x2. WILL CONTINUE TO MONITOR.
[2022-01-17] MEDS: PANTOPRAZOLE 40 MG VIAL IV SCH (08:47)
[2022-01-17] MEDS: DEXAMETHASONE SOD PHOSPHATE 10 MG/ML VIAL IV SCH (08:47)
[2022-01-17] MEDS: IV NS 0.9% 1,000 ML IV PRN (08:48)
[2022-01-17] MEDS: CEFEPIME 2 GM in IV D5W 100 ML IV SCH (08:48)
[2022-01-17] MEDS: APIXABAN 5 MG TABLET PO SCH (08:51)
[2022-01-17] MEDS ORDERED: POTASSIUM CHLORIDE 20 MEQ POWDER PACKET PO SCH (10:00)
[2022-01-17 13:36] LABS: BASOPHILS % (MANUAL) 0 % (0.0-2.0); EOSINOPHILS % (MANUAL) 0 % (0-4); LYMPHOCYTES % (MANUAL) 4 % (16-48); MONOCYTES % (MANUAL) 5 % (0-11.0); NEUTROPHILS % (MANUAL) 91 (42-76)
[2022-01-17 16:00] VITALS: BP 121/86
--- NOTE | 2022-01-17 16:03 | NUR ---
MUFFLE WORKER NOTES PATIENT DISCHARGED TO [facility], STABLE A/Ox1-2, MACEDONIAN SPEAKING EPISODES OF CONFUSION. PATIENT IS ON 2L NC, STABLE NO S/S OF SOB OR RESPIRATORY DISTRESS. REPORT GIVEN TO RN MART, DISCHARGE INSTRUCTIONS AND MEDICATIONS REVIEWED. PATIENT LEAVING WITH IV ACCESS RAC #18, INTACT AND PATENT, DRESSING IN PLACE. NO S/S OF LEAKING OR INFILTRATION. FC REMOVED OUTPUT: 830 ML. PHOTOS TAKEN OF PATIENT'S DISCOLORATION OF BILATERAL LOWER LEGS AND SACRUM. FILED IN CHART. ID BAND REMOVED. PATIENT LEFT UNIT VIA AMBULANCE ACCOMPANIED BY 2 software configuration manager @1600. CHARGE NURSE AND MD AWARE OF DISCHARGE.
== END 2022-01-17 15:55 | DRG 871 ==
LOC: ER 20:48 → ICU 23:13 → TELE 01-15 11:47
PROVIDERS: ADMIT Nurse Practitioner Acute Care
DX: A41.9 Sepsis, unspecified organism (principal); G92.8 Other toxic encephalopathy; J69.0 Pneumonitis due to inhalation of food and vomit; J96.01 Acute respiratory failure with hypoxia; D68.59 Other primary thrombophilia; E87.2 Acidosis; I82.411 Acute embolism and thrombosis of right femoral vein; N39.0 Urinary tract infection, site not specified; R65.20 Severe sepsis without septic shock; Z20.822 Contact with and (suspected) exposure to COVID-19; D50.9 Iron deficiency anemia, unspecified; D63.8 Anemia in other chronic diseases classified elsewhere; E11.9 Type 2 diabetes mellitus without complications; E78.5 Hyperlipidemia, unspecified; I25.10 Atherosclerotic heart disease of native coronary artery without angina pectoris; F03.90 Unspecified dementia, unspecified severity, without behavioral disturbance, psychotic disturbance, mood disturbance, and anxiety; I10 Essential (primary) hypertension; N40.0 Benign prostatic hyperplasia without lower urinary tract symptoms; R13.10 Dysphagia, unspecified; Z91.81 History of falling; F32.9 Major depressive disorder, single episode, unspecified; G47.9 Sleep disorder, unspecified; R27.0 Ataxia, unspecified; Z79.01 Long term (current) use of anticoagulants; Z79.899 Other long term (current) drug therapy; Z79.84 Long term (current) use of oral hypoglycemic drugs; Z79.4 Long term (current) use of insulin; E83.52 Hypercalcemia; E83.39 Other disorders of phosphorus metabolism; Z74.09 Other reduced mobility; B96.89 Other specified bacterial agents as the cause of diseases classified elsewhere; F09 Unspecified mental disorder due to known physiological condition; Y95 Nosocomial condition; Z79.02 Long term (current) use of antithrombotics/antiplatelets; E87.6 Hypokalemia
CPT/HCPCS: 36415; 36600; 71045-TC; 80048-TC; 80053-TC; 80076-TC; 81001; 82803-TC; 82962-TC; 83605-TC; 83735-TC; 84100-TC; 84443-TC; 84484-TC; 85025-TC; 85378-TC; 85730-TC; 87040-TC; 87081-TC; 87086-TC; 87186-TC; 92507-TC; 92526; 93307-TC; 93970-TC; 94660; 94762-TC; 94799-TC; A6253; A6403; C9113; G0378; J0330; J0692; J1100; J1644; J1650; J1815; J2405; J2543; J3480; J7030; J7060; J7120; Q9967; U0003